=== PATIENT | female | born 1960 | race African-American/Black ===

== ENCOUNTER 2017-11-13 12:11 | Inpatient (IN) | payer MEDICARE ==
[~2017-11-13] VITALS: Ht 160 cm; Wt 91.8 kg
[~2017-11-13 12:11] MED LIST: BENZ1TAB10 PO; BUPR-93 PO; IPRA4AER IH; QUET100T PO; RISP.5 PO
[2017-11-13 12:53] VITALS: BP 127/71
[2017-11-13] MEDS ORDERED: HALOPERIDOL 5 MG TABLET PO PRN (13:15)
[2017-11-13] MEDS ORDERED: ZOLPIDEM TARTRATE 10 MG TABLET PO PRN (13:15)
[2017-11-13 14:35] VITALS: BP 133/74
[2017-11-13] MEDS: LORazepam 2 MG TABLET PO PRN (14:38)
[2017-11-13] MEDS ORDERED: PNEUMOCOCCAL VACCINE POLYVALENT 0.5 ML VIAL [PPSV23] IM ONE (14:45)
[2017-11-13] MEDS ORDERED: ALBUTEROL SULFATE HFA 90 MCG/PUFF 8 GM INHALER IH PRN (14:45)
[2017-11-13] MEDS ORDERED: INFLUENZA VIRUS VACCINE QVS 2017-18 (3YR+)/PF 60 MCG/0.5 ML SYRINGE IM ONE (14:45)
[2017-11-13] MEDS: NICOTINE 7 MG/24 HOUR PATCH TD SCH (16:19)
[2017-11-13 16:24] VITALS: BP 115/74
[2017-11-13] MEDS ORDERED: ACETAMINOPHEN 325 MG TABLET PO PRN (20:30)
[2017-11-13] MEDS ORDERED: IBUPROFEN 400 MG TABLET PO PRN (20:30)
[2017-11-13] MEDS ORDERED: ALBUTEROL SULFATE/IPRATROPIUM 100-20 MCG/SPRAY 4 GM INHALER IH PRN (20:30)
[2017-11-14 00:41] VITALS: BP 106/66
[2017-11-14 08:17] LABS: BASOPHILS % (AUTO) 0.5 % (0.0-2.0); EOSINOPHILS % (AUTO) 3.4 % (1.0-6.0); HEMATOCRIT 39.9 % (36-46); HEMOGLOBIN 13.6 g/dL (12.0-16.0); LYMPHOCYTES # (AUTO) 1.5 K/uL (1.0-4.8); LYMPHOCYTES % (AUTO) 31.2 % (22.0-44.0); MEAN CORPUSCULAR HEMOGLOBIN 29.9 pg (26.0-34.0); MEAN CORPUSCULAR HGB CONC 34.1 G/dL (31.0-37.0); MEAN CORPUSCULAR VOLUME 88 fL (80-100); MONOCYTES # (AUTO) 0.5 K/uL (0.1-1.0); MONOCYTES % (AUTO) 10.1 % (2.0-9.0); NEUTROPHILS # (AUTO) 2.6 K/uL (1.8-7.7); NEUTROPHILS % (AUTO) 54.8 % (40.0-70.0); PLATELET COUNT (AUTO) 301 K/uL (150-450); RED BLOOD CELL COUNT(AUTO) 4.56 MIL/uL (4.00-5.20); RED CELL DISTRIBUTION WIDTH 13.9 % (11.5-14.5)
[2017-11-14 08:21] VITALS: BP 131/80
[2017-11-14] MEDS: NICOTINE 7 MG/24 HOUR PATCH TD SCH (08:36)
[2017-11-14 08:55] LABS: ALANINE AMINOTRANSFERASE 32 U/L (12-78); ALBUMIN 3.7 g/dL (3.4-5.0); ALKALINE PHOSPHATASE 76 U/L (46-116); ANION GAP 7 mmol/L (8-16); ASPARTATE AMINOTRANSFERASE 26 U/L (15-37); BILIRUBIN,TOTAL 0.4 mg/dL (0.1-1.0); CARBON DIOXIDE 33 mmol/L (22-29); CHLORIDE 103 mmol/L (98-107); CHOL/HDL RATIO 6.3 (3.9-5.7); CHOLESTEROL 200 mg/dL (131-200); CREATININE 1.02 mg/dL (0.60-1.30); FREE T4 (FREE THYROXINE) 0.78 ng/dL (0.76-1.46); GLOMERULAR FILTR. RATE CALC > 60 mL/min (>60); GLUCOSE,RANDOM 95 mg/dL (70-110); HDL CHOLESTEROL 32 mg/dL (40-60); LDL CHOL (CALC.) 124 mg/dL (0-130); POTASSIUM 4.1 mmol/L (3.5-5.1); SODIUM SERUM 143 mmol/L (136-145); THYROID STIMULATING HORMONE 0.95 uIU/mL (0.36-3.74); TOTAL PROTEIN, SERUM 7.4 g/dL (6.4-8.2); TRIGLYCERIDES 222 mg/dL (15-150); UREA NITROGEN, BLOOD 11 mg/dL (7-18)
[2017-11-14] MEDS: LORazepam 2 MG TABLET PO PRN (08:58)
[2017-11-14 16:10] VITALS: BP 124/85
[2017-11-14] MEDS ORDERED: IBUPROFEN 400 MG TABLET PO PRN (17:30)
[2017-11-14] MEDS ORDERED: ACETAMINOPHEN 325 MG TABLET PO PRN (17:30)
[2017-11-14] MEDS: BENZTROPINE MESYLATE 1 MG TABLET PO SCH (20:35)
[2017-11-14] MEDS: BuPROPion HCL XL 150 MG ER TABLET PO SCH (20:35)
[2017-11-14] MEDS: QUEtiapine FUMARATE 100 MG TABLET PO SCH (20:35)
[2017-11-14] MEDS: RisperiDONE 0.5 MG TABLET PO SCH (20:35)
[2017-11-15 05:58] VITALS: BP 132/75
[2017-11-15 08:17] VITALS: BP 143/63
[2017-11-15] MEDS: RisperiDONE 0.5 MG TABLET PO SCH ×2 (08:50→20:31)
[2017-11-15] MEDS: NICOTINE 7 MG/24 HOUR PATCH TD SCH (08:51)
[2017-11-15] MEDS: LORazepam 2 MG TABLET PO PRN (10:05)
[2017-11-15 16:16] VITALS: BP 134/84
[2017-11-15] MEDS: BuPROPion HCL XL 150 MG ER TABLET PO SCH (20:31)
[2017-11-15] MEDS: BENZTROPINE MESYLATE 1 MG TABLET PO SCH (20:31)
[2017-11-15] MEDS: QUEtiapine FUMARATE 100 MG TABLET PO SCH (20:31)
[2017-11-16 04:18] VITALS: BP 124/69
[2017-11-16] MEDS: RisperiDONE 0.5 MG TABLET PO SCH ×2 (08:18→20:41)
[2017-11-16] MEDS: BENZTROPINE MESYLATE 1 MG TABLET PO SCH (08:19)
[2017-11-16] MEDS: NICOTINE 7 MG/24 HOUR PATCH TD SCH (08:19)
[2017-11-16 09:05] VITALS: BP 135/84
[2017-11-16 16:19] VITALS: BP 138/84
[2017-11-16] MEDS: BuPROPion HCL XL 150 MG ER TABLET PO SCH (20:41)
[2017-11-16] MEDS: QUEtiapine FUMARATE 100 MG TABLET PO SCH (20:41)
[2017-11-17 03:52] VITALS: BP 128/73
[2017-11-17] MEDS: NICOTINE 7 MG/24 HOUR PATCH TD SCH (08:17)
[2017-11-17] MEDS: RisperiDONE 0.5 MG TABLET PO SCH (08:17)
[2017-11-17] MEDS: BENZTROPINE MESYLATE 1 MG TABLET PO SCH (08:17)
[2017-11-17 08:22] VITALS: BP 136/60
[2017-11-17] MEDS ORDERED: RISP.5 PO (12:47)
== END 2017-11-17 14:20 | disposition home or self-care (01) | DRG 885 ==
LOC: B2X 13:31
PROVIDERS: ADMIT Psychiatry & Neurology Psychiatry; ATTEND Psychiatry & Neurology Psychiatry
PROC: 3E0234Z Introduction of Serum, Toxoid and Vaccine into Muscle, Percutaneous Approach (ICD-10-PCS; principal; 2017-11-13)
DX: F20.0 Paranoid schizophrenia (principal); E78.5 Hyperlipidemia, unspecified; F17.200 Nicotine dependence, unspecified, uncomplicated; J45.909 Unspecified asthma, uncomplicated; M19.90 Unspecified osteoarthritis, unspecified site; Z88.0 Allergy status to penicillin; Z79.899 Other long term (current) drug therapy; Z98.51 Tubal ligation status; Z23 Encounter for immunization
CPT/HCPCS: 83036; 84439; 84443